=== PATIENT | female | born 1980 | race Caucasian/White ===

== ENCOUNTER → 2016-11-15 | Outpatient (CLI) | payer BC ==
[~2016-11-15] MED LIST: ALLEGRA180 MG PO; CELEXA20 MG PO; NEXIUM40 MG PO; REGLAN10 MG PO
== END | disposition disaster alternative care site (69) ==
LOC: GRAD 13:45
DX: R79.89 Other specified abnormal findings of blood chemistry (principal); R10.11 Right upper quadrant pain; Z90.49 Acquired absence of other specified parts of digestive tract